=== PATIENT | female | born 1945 | race Caucasian/White ===

== ENCOUNTER 2017-03-26 16:48 | Emergency (ER) | payer MEDICARE, BC ==
[~2017-03-26] VITALS: Ht 177.8 cm; Wt 68.2 kg
[2017-03-26 18:05] LABS: BASOPHILS % (AUTO) 0.3 % (0-1); EOSINOPHILS # (AUTO) 0.2 X10'3 (0-0.9); EOSINOPHILS % (AUTO) 2.3 % (0-6); HEMATOCRIT 32.9 % (35.0-45.0); LYMPHOCYTES % (AUTO) 12.7 % (21-51); MEAN CORPUSCULAR HEMOGLOBIN 30.1 PG (27.0-31.0); MEAN CORPUSCULAR HGB CONC 33.5 % (33.0-36.5); MEAN CORPUSCULAR VOLUME 89.9 FL (78-98); MEAN PLATELET VOLUME 7.9 FL (7.4-10.4); MONOCYTES # (AUTO) 0.4 X10'3 (0-0.9); NEUTROPHILS # (AUTO) 6.6 X10'3 (1.8-7.7); NEUTROPHILS % (AUTO) 79.7 % (42-75); PLATELET COUNT 362 X10'3 (140-440); RED BLOOD COUNT 3.66 X10'6 (4.20-5.60); RED CELL DISTRIBUTION WIDTH 14.4 % (11.5-14.5); WHITE BLOOD COUNT 8.3 X10'3 (4.5-11.0)
[2017-03-26 18:25] LABS: ALANINE AMINOTRANSFERASE 21 U/L (12-78); ALBUMIN 3.9 G/DL (3.4-5.0); ALBUMIN/GLOBULIN RATIO 1.3 (1.1-1.5); ALKALINE PHOSPHATASE 55 IU/L (46-116); ANION GAP 6 (8-16); ASPARTATE AMINO TRANSFERASE 20 U/L (10-37); BILIRUBIN,TOTAL 0.3 MG/DL (0.1-1.0); BLOOD UREA NITROGEN 20 MG/DL (7-18); BUN/CREATININE RATIO 25.6 (6.6-38.0); CALCIUM 9.5 MG/DL (8.5-10.1); CHLORIDE 103 MMOL/L (99-107); CREATININE 0.78 MG/DL (0.40-0.90); GLUCOSE 104 MG/DL (70-104); POTASSIUM 4.4 MMOL/L (3.5-5.1); SODIUM 138 MMOL/L (135-145); TOTAL CARBON DIOXIDE 28.9 MMOL/L (24-32); eGFR 73 ML/MIN
[2017-03-26] MEDS ORDERED: diphenhydrAMINE 50 mg/ml inj IM ONE (19:00)
[2017-03-26] MEDS ORDERED: ketamine 10mg/ml 20ml inj IV ONE ×3 (20:30→21:15)
[2017-03-26] MEDS ORDERED: propofol 10mg/ml 20ml vial IV ONE (20:35)
[2017-03-26] MEDS ORDERED: ketamine 50 mg/ml 10ml vial IV ONE (21:20)
[2017-03-26] MEDS ORDERED: WHEE1EAC12 MC (23:02)
[2017-03-26 23:08] VITALS: BP 181/95
== END 2017-03-26 23:12 | disposition home or self-care (01) ==
LOC: ER 16:49
DX: S52.502A Unspecified fracture of the lower end of left radius, initial encounter for closed fracture (principal); S52.202A Unspecified fracture of shaft of left ulna, initial encounter for closed fracture; S82.001A Unspecified fracture of right patella, initial encounter for closed fracture; S00.83XA Contusion of other part of head, initial encounter; E78.00 Pure hypercholesterolemia, unspecified; I10 Essential (primary) hypertension; Z88.8 Allergy status to other drugs, medicaments and biological substances; W01.0XXA Fall on same level from slipping, tripping and stumbling without subsequent striking against object, initial encounter; Y93.89 Activity, other specified; Y92.89 Other specified places as the place of occurrence of the external cause; Y99.8 Other external cause status
CPT/HCPCS: 25605; 36415; 70450; 70486; 71020; 72125; 73100; 73110; 73564; 73700; 80053; 85025; 94760; 96372; 99152; 99285; A4565; A6449; J1200; J2704; J7030; A4620

== ENCOUNTER 2017-06-24 20:19 | Inpatient (IN) | payer MEDICARE, BC ==
[~2017-06-24] VITALS: Ht 165.1 cm; Wt 50.0 kg
[~2017-06-24 20:19] MED LIST: WHEE1EAC12 MC
[2017-06-24] MEDS ORDERED: LORazepam 2 mg/ml vial IV ONE ×2 (21:20→23:10)
[2017-06-24] MEDS ORDERED: haloperidol lactate 5mg/ml inj IM ONE ×3 (21:20→22:55)
[2017-06-24 21:38] LABS: BASOPHILS % (AUTO) 0.5 % (0-1); EOSINOPHILS # (AUTO) 0.2 X10'3 (0-0.9); EOSINOPHILS % (AUTO) 2.3 % (0-6); HEMATOCRIT 27.2 % (35.0-45.0); HEMOGLOBIN 9.2 g/dl (12.0-16.0); LYMPHOCYTES # (AUTO) 1.3 X10'3 (1.1-4.8); LYMPHOCYTES % (AUTO) 16.2 % (21-51); MEAN CORPUSCULAR HGB CONC 33.7 % (33.0-36.5); MEAN CORPUSCULAR VOLUME 88.9 FL (78-98); MEAN PLATELET VOLUME 7.5 FL (7.4-10.4); MONOCYTES # (AUTO) 0.7 X10'3 (0-0.9); NEUTROPHILS # (AUTO) 5.9 X10'3 (1.8-7.7); PLATELET COUNT 388 X10'3 (140-440); RED BLOOD COUNT 3.06 X10'6 (4.20-5.60); RED CELL DISTRIBUTION WIDTH 15.1 % (11.5-14.5); WHITE BLOOD COUNT 8.1 X10'3 (4.5-11.0)
[2017-06-24 21:50] LABS: INR 0.9 INR; PARTIAL THROMBOPLASTIN TIME 26 SECONDS (22-32); PROTHROMBIN TIME 9.7 SECONDS (9.0-12.0)
[2017-06-24 21:57] LABS: ALANINE AMINOTRANSFERASE 24 U/L (12-78); ALBUMIN 3.1 G/DL (3.4-5.0); ALKALINE PHOSPHATASE 68 IU/L (46-116); ANION GAP 6 (8-16); ASPARTATE AMINO TRANSFERASE 28 U/L (10-37); BILIRUBIN,TOTAL 0.4 MG/DL (0.1-1.0); BLOOD UREA NITROGEN 21 MG/DL (7-18); BUN/CREATININE RATIO 30.9 (6.6-38.0); CHLORIDE 103 MMOL/L (99-107); CREATINE KINASE 64 U/L (26-192); CREATININE 0.68 MG/DL (0.40-0.90); GLUCOSE 102 MG/DL (70-104); POTASSIUM 4.3 MMOL/L (3.5-5.1); SODIUM 139 MMOL/L (135-145); TOTAL CARBON DIOXIDE 29.7 MMOL/L (24-32); TOTAL PROTEIN 6.3 G/DL (6.4-8.2); TROPONIN I 0.04 NG/ML (0.0-0.05); eGFR 85 ML/MIN
[2017-06-24] MEDS: haloperidol lactate 5mg/ml inj IM ONE ×2 (22:35→22:41)
[2017-06-25] MEDS ORDERED: acetaminophen 325mg tablet PO PRN ×2 (01:45→13:20)
[2017-06-25] MEDS: morphine 4 MG/ML inj SYRINge IV PRN ×3 (05:13→18:53)
[2017-06-25] MEDS ORDERED: LORazepam 2 mg/ml vial IV PRN (13:20)
[2017-06-25] MEDS ORDERED: morphine 10mg/0.5ml (conc. morphine) oral syringe PO PRN (13:20)
[2017-06-25] MEDS ORDERED: haloperidol lactate 5mg/ml inj IM PRN (13:20)
[2017-06-25] MEDS: LORazepam 2 mg/ml vial IV PRN (18:14)
[2017-06-25 19:30] VITALS: BP 165/67
[2017-06-25] MEDS: docusate sod 100mg capsule PO SCH (20:00)
[2017-06-26] MEDS ORDERED: ASPI81TA30 PO (02:07)
[2017-06-26] MEDS ORDERED: ESCI5TAB PO (02:07)
[2017-06-26] MEDS ORDERED: LORA0.5T PO (02:07)
[2017-06-26] MEDS ORDERED: MIRT15TA10 PO (02:07)
[2017-06-26] MEDS ORDERED: METO50TA16 PO (02:07)
[2017-06-26] MEDS ORDERED: GUAI120015 PO (02:07)
[2017-06-26] MEDS ORDERED: SYN0.088T PO (02:07)
[2017-06-26] MEDS ORDERED: TEMA30CA5 PO (02:07)
[2017-06-26] MEDS ORDERED: CHOL100046 PO (02:07)
[2017-06-26] MEDS ORDERED: FENO145T36 PO (02:07)
[2017-06-26] MEDS: morphine 4 MG/ML inj SYRINge IV PRN ×5 (02:28→20:09)
[2017-06-26 07:00] VITALS: BP 122/70
[2017-06-26] MEDS: docusate sod 100mg capsule PO SCH ×2 (08:00→20:00)
[2017-06-26] MEDS: LORazepam 2 mg/ml vial IV PRN ×4 (08:54→22:31)
[2017-06-26 19:10] VITALS: BP 139/72
[2017-06-27] MEDS: morphine 4 MG/ML inj SYRINge IV PRN ×3 (00:58→21:09)
[2017-06-27] MEDS: LORazepam 2 mg/ml vial IV PRN ×5 (05:23→22:45)
[2017-06-27] MEDS: docusate sod 100mg capsule PO SCH ×2 (08:00→19:19)
[2017-06-27 08:48] VITALS: BP 139/88
[2017-06-27] MEDS: morphine 10mg/0.5ml (conc. morphine) oral syringe PO PRN (13:20)
[2017-06-27 19:10] VITALS: BP 140/78
[2017-06-28] MEDS: morphine 4 MG/ML inj SYRINge IV PRN ×3 (04:10→15:44)
[2017-06-28] MEDS: docusate sod 100mg capsule PO SCH ×2 (08:00→20:00)
[2017-06-28 08:08] VITALS: BP 182/98
[2017-06-28] MEDS: LORazepam 2 mg/ml vial IV PRN ×2 (09:25→17:58)
[2017-06-28] MEDS: morphine 10mg/0.5ml (conc. morphine) oral syringe PO PRN (22:18)
[2017-06-29] VITALS: BP 166/100
[2017-06-29] MEDS: morphine 10mg/0.5ml (conc. morphine) oral syringe PO PRN ×4 (02:17→17:37)
[2017-06-29 07:00] VITALS: BP 197/108
[2017-06-29] MEDS: docusate sod 100mg capsule PO SCH ×2 (08:00→20:00)
[2017-06-29] MEDS ORDERED: LORazepam 2 mg/ml vial IM PRN (13:30)
[2017-06-29 20:00] VITALS: BP 199/105
[2017-06-29] MEDS ORDERED: acetaminophen 120MG suppository, rectal RC PRN (21:05)
[2017-06-29] MEDS ORDERED: LORazepam 0.5 MG tablet PO PRN (21:05)
[2017-06-29] MEDS ORDERED: acetaminophen 325mg rectal suppository RC PRN (22:17)
[2017-06-29 23:30] VITALS: BP 153/90
[2017-06-30] MEDS: bisacodyl 10mg suppository rectal RC PRN (03:45)
[2017-06-30 07:00] VITALS: BP 190/108
[2017-06-30] MEDS ORDERED: cloNIDine 0.2 MG/24 HR patch (7 day patch) TD SCH (07:50)
[2017-06-30] MEDS: docusate sod 100mg capsule PO SCH ×2 (08:00→20:00)
[2017-06-30] MEDS: morphine 10mg/0.5ml (conc. morphine) oral syringe PO PRN (08:25)
[2017-06-30 11:34] VITALS: BP 170/80
[2017-06-30] MEDS: OLANZapine 2.5MG tablet PO SCH ×2 (14:14→20:00)
[2017-06-30] MEDS: metoprolol tartrate 50mg tablet PO SCH (20:00)
[2017-07-01] MEDS: bisacodyl 10mg suppository rectal RC PRN (04:21)
[2017-07-01] MEDS: docusate sod 100mg capsule PO SCH ×2 (08:00→20:00)
[2017-07-01] MEDS: OLANZapine 2.5MG tablet PO SCH ×3 (08:00→20:45)
[2017-07-01] MEDS: metoprolol tartrate 50mg tablet PO SCH ×3 (08:00→20:44)
[2017-07-01 08:06] VITALS: BP 188/125
[2017-07-01] MEDS: morphine 10mg/0.5ml (conc. morphine) oral syringe PO PRN (14:17)
[2017-07-01 19:00] VITALS: BP 175/108
[2017-07-02 07:23] VITALS: BP 143/91
[2017-07-02] MEDS: docusate sod 100mg capsule PO SCH (08:00)
[2017-07-02] MEDS: metoprolol tartrate 50mg tablet PO SCH ×2 (08:00→20:00)
[2017-07-02] MEDS: OLANZapine 2.5MG tablet PO SCH ×2 (08:00→20:00)
[2017-07-02] MEDS ORDERED: bisacodyl 10mg suppository rectal RC STA (10:53)
[2017-07-02] MEDS ORDERED: bisacodyl 10mg suppository rectal RC PRN (10:55)
[2017-07-02] MEDS: bisacodyl 10mg suppository rectal RC PRN (20:40)
[2017-07-03 06:57] VITALS: BP 165/97
[2017-07-03] MEDS: OLANZapine 2.5MG tablet PO SCH ×2 (08:00→20:00)
[2017-07-03] MEDS: metoprolol tartrate 50mg tablet PO SCH ×2 (08:00→20:00)
[2017-07-03 18:50] VITALS: BP 154/98
[2017-07-04 07:00] VITALS: BP 169/115
[2017-07-04] MEDS: metoprolol tartrate 50mg tablet PO SCH ×2 (08:00→20:00)
[2017-07-04] MEDS: OLANZapine 2.5MG tablet PO SCH ×2 (08:00→20:00)
[2017-07-04] MEDS: morphine 10mg/0.5ml (conc. morphine) oral syringe PO PRN (09:22)
[2017-07-04 14:08] LABS: BASOPHILS # (AUTO) 0.1 X10'3 (0-0.2); BASOPHILS % (AUTO) 0.7 % (0-1); EOSINOPHILS # (AUTO) 0.2 X10'3 (0-0.9); EOSINOPHILS % (AUTO) 1.6 % (0-6); HEMATOCRIT 32.4 % (35.0-45.0); HEMOGLOBIN 11.3 g/dl (12.0-16.0); LYMPHOCYTES # (AUTO) 0.5 X10'3 (1.1-4.8); LYMPHOCYTES % (AUTO) 4.2 % (21-51); MEAN CORPUSCULAR HEMOGLOBIN 29.9 PG (27.0-31.0); MEAN CORPUSCULAR HGB CONC 34.9 % (33.0-36.5); MEAN CORPUSCULAR VOLUME 85.5 FL (78-98); MEAN PLATELET VOLUME 7.6 FL (7.4-10.4); MONOCYTES # (AUTO) 0.8 X10'3 (0-0.9); MONOCYTES % (AUTO) 6.1 % (2-12); NEUTROPHILS # (AUTO) 11.3 X10'3 (1.8-7.7); NEUTROPHILS % (AUTO) 87.4 % (42-75); PLATELET COUNT 649 X10'3 (140-440); RED BLOOD COUNT 3.79 X10'6 (4.20-5.60); RED CELL DISTRIBUTION WIDTH 15.3 % (11.5-14.5)
[2017-07-04 14:22] LABS: ALANINE AMINOTRANSFERASE 16 U/L (12-78); ALBUMIN 2.9 G/DL (3.4-5.0); ALBUMIN/GLOBULIN RATIO 0.6 (1.1-1.5); ALKALINE PHOSPHATASE 100 IU/L (46-116); ANION GAP 20 (8-16); ASPARTATE AMINO TRANSFERASE 17 U/L (10-37); BILIRUBIN,TOTAL 0.6 MG/DL (0.1-1.0); BLOOD UREA NITROGEN 148 MG/DL (7-18); CALCIUM 9.7 MG/DL (8.5-10.1); CHLORIDE 107 MMOL/L (99-107); GLUCOSE 125 MG/DL (70-104); POTASSIUM 4.8 MMOL/L (3.5-5.1); SODIUM 150 MMOL/L (135-145); TOTAL CARBON DIOXIDE 22.8 MMOL/L (24-32); TOTAL PROTEIN 7.6 G/DL (6.4-8.2); eGFR 5 ML/MIN
[2017-07-04] MEDS: bisacodyl 10mg suppository rectal RC PRN (15:43)
[2017-07-04 19:00] VITALS: BP 124/83
[2017-07-05] MEDS: OLANZapine 2.5MG tablet PO SCH ×2 (08:00→20:00)
[2017-07-05] MEDS: metoprolol tartrate 50mg tablet PO SCH ×2 (08:00→20:00)
[2017-07-06 07:21] VITALS: BP 122/85
[2017-07-06] MEDS: OLANZapine 2.5MG tablet PO SCH ×2 (08:00→20:00)
[2017-07-06] MEDS: metoprolol tartrate 50mg tablet PO SCH ×2 (08:00→20:00)
== END 2017-07-07 05:30 | disposition expired | DRG 82 ==
LOC: ER 20:19 → ED HOLD 06-25 01:41 → MED 3N 06-25 17:49
PROVIDERS: ADMIT Internal Medicine; ATTEND Internal Medicine
PROC: 0HQ0XZZ Repair Scalp Skin, External Approach (ICD-10-PCS; principal; 2017-06-24)
DX: S06.6X9A Traumatic subarachnoid hemorrhage with loss of consciousness of unspecified duration, initial encounter (principal); G93.40 Encephalopathy, unspecified; S06.5X9A Traumatic subdural hemorrhage with loss of consciousness of unspecified duration, initial encounter; N17.9 Acute kidney failure, unspecified; E44.0 Moderate protein-calorie malnutrition; S01.01XA Laceration without foreign body of scalp, initial encounter; S05.11XA Contusion of eyeball and orbital tissues, right eye, initial encounter; F03.91 Unspecified dementia, unspecified severity, with behavioral disturbance; Z68.1 Body mass index [BMI] 19.9 or less, adult; F05 Delirium due to known physiological condition; E78.00 Pure hypercholesterolemia, unspecified; E78.5 Hyperlipidemia, unspecified; E86.0 Dehydration; I10 Essential (primary) hypertension; W18.39XA Other fall on same level, initial encounter; Z51.5 Encounter for palliative care; Z66 Do not resuscitate; Z88.8 Allergy status to other drugs, medicaments and biological substances; Z79.82 Long term (current) use of aspirin; Z79.899 Other long term (current) drug therapy; Y93.89 Activity, other specified; Y92.89 Other specified places as the place of occurrence of the external cause; Y99.8 Other external cause status
CPT/HCPCS: 36415; 70450; 70486; 71045; 72125; 80053; 82550; 82948; 84484; 85025; 85610; 85730; 93005; A4353; A6212; A6258; A6446; J1630; J2060; J2270; J7030